=== PATIENT | female | born 1960 | race Caucasian/White ===

== ENCOUNTER 2016-12-19 16:27 | Emergency (ER) | payer OTHER ==
[~2016-12-19] VITALS: Ht 165.1 cm; Wt 71.5 kg
[~2016-12-19 16:27] MED LIST: ALB.5NB20 IH; ALBU8.5H3 INH; BCL80INH INH; DIPH25CA77 PO; GUAI120S26 PO; IBUP800T25 PO; LEVE250T5 PO; PRED50TA PO; ZIPR60CA6 PO
[2016-12-19 16:29] VITALS: Ht 165.1 cm; Wt 71.5 kg
--- NOTE | 2016-12-19 19:39 | RADRPT ---
PROCEDURE: XR Chest. CLINICAL INDICATION: Cough. TECHNIQUE: Portable AP erect view of the chest was obtained. COMPARISON: 12/11/2015 FINDINGS: The cardiomediastinal silhouette is within normal limits. The lungs are clear. There is no evidenc e for pleural effusion, pneumothorax or pulmonary vascular congestion. Degenerative spondylosis of the thoracic spine is again incidentally noted. RPTAT:HJJR IMPRESSION: No evidence for acute intrathoracic pathology or interval change from 12/11/2015. Physician Dipesh Date Time Electronically viewed and signed by Physician Dipesh on 12/19/2016 19:39 /
[2016-12-19] MEDS ORDERED: BENZ100C70 PO (19:57)
[2016-12-19] MEDS ORDERED: PRED20TA PO (19:57)
[2016-12-19] MEDS ORDERED: CEPH-443 PO (19:57)
[2016-12-19] MEDS ORDERED: BEN25 PO (19:57)
[2016-12-19] MEDS ORDERED: ALBU8.5H3 INH (19:57)
--- NOTE | 2016-12-19 20:07 | ERD ---
ER Documentation Chief Complaint Date/Time DATE: 12/19/16 TIME: 20:00 Chief Complaint States she had a bite to upper arm now itches and hurts HPI 56-year-old female patient with a past medical history of asthma, hypertension, seizures, bipolar disorder presents to the ED complaining of insect bites in her bilateral forearms as well as a dry cough that started intermittently for 1 week. Denies any recent traveling. Denies any chest pain, nausea, vomiting, wheezing, abdominal pain, fever, chills. Denies any sick contacts. ROS All systems reviewed and are negative except as per history of present illness. Medications Home Meds Active Scripts Albuterol Sulfate* (Proair HFA*) 8.5 Gm Hfa.aer.ad, 2 PUFF INH Q4, #1 INHALER Prov:ROMAIN FITZPATRICK PA-C 12/19/16 Benzonatate* (Tessalon Perle*) 100 Mg Capsule, 100 MG PO Q8H Y for COUGH, #20 CAP Prov:ROMAIN FITZPATRICK PA-C 12/19/16 Diphenhydramine Hcl* (Benadryl*) 25 Mg Cap, 25 MG PO Q6 Y for ITCHING/RASH, #30 TAB Prov:ROMAIN FITZPATRICK PA-C 12/19/16 Prednisone* (Prednisone*) 20 Mg Tab, 40 MG PO DAILY for 4 Days, TAB Prov:ROMAIN FITZPATRICK PA-C 12/19/16 Cephalexin* (Keflex*) 500 Mg Capsule, 500 MG PO QID for 7 Days, CAP Prov:ROMAIN FITZPATRICK PA-C 12/19/16 Zsfyroizyvz-V-Jrghqufgps Hb* (Guaifenesin* DM Syrup) 120 Ml Syrup, 10 ML PO Q4H Y for COUGH, #120 ML Prov:JESUS BURT NP 12/11/15 Prednisone* (Prednisone*) 50 Mg Tablet, 50 MG PO DAILY, #5 TAB Prov:JESUS BURT NP 12/11/15 Albuterol Sulfate* (Proair HFA*) 8.5 Gm Hfa.aer.ad, 2 PUFF INH Q4H Y for WHEEZING AND SOB, #1 INHALER Prov:JESUS BURT NP 12/11/15 Reported Medications Levetiracetam* (Levetiracetam*) 250 Mg Tablet, 250 MG PO BID 08/05/13 Albuterol Sulfate* (Albuterol Sulfate* Neb) 20 Ml Nebu, 20 ML IH 08/05/13 Beclomethasone Dip (Qvar 80) 1 Puff Inha, 1 PUFF INH BID, INH RINSE MOUTH AFTER EACH USE 08/05/13 Ibuprofen* (Ibuprofen*) 800 Mg Tablet, 800 MG PO Y for PAIN 08/05/13 Diphenhydramine HCl (Benadryl) 25 Mg Capsule, 50 MG PO 08/05/13 Ziprasidone* (Geodon*) 60 Mg Capsule, 60 MG PO BID 08/05/13 Allergies Allergies: Coded Allergies: Tetracyclines (Unverified Allergy, Unknown, DYSPNEA, VOMITING, 12/11/15) aspirin (Unverified Allergy, Unknown, NAUSEA, 12/11/15) codeine (Unverified Allergy, Unknown, RASH, HIVES, 12/11/15) PMhx/Soc History of Surgery: Yes (HYSTERECTOMY, R ARM SX, TONSILLECTOMY, D & C) Anesthesia Reaction: No Hx Neurological Disorder: Yes (SZ, LAST 2YEARS AGO. MIGRAINES) Hx Respiratory Disorders: Yes (ASTHMA) Hx Cardiac Disorders: Yes (HTN) Hx Psychiatric Problems: Yes (BIPOLAR, DEPRESSION, PANIC ATTACKS ) Hx Miscellaneous Medical Probl: Yes (HEP C) Hx Alcohol Use: No Hx Substance Use: No Hx Tobacco Use: No Smoking Status: Never smoker Physical Exam Vitals Vital Signs Date Time Temp Pulse Resp B/P Pulse Ox O2 Delivery O2 Flow Rate FiO2 12/19/16 20:37 98.2 73 20 161/98 99 Room Air 12/19/16 16:29 97.8 104 20 159/98 98 Physical Exam Const: Hoh-kep-ruisllnuz, well-nourished. In no acute distress. Head: Atraumatic, normocephalic Eyes: Normal Conjunctiva without injection. No purulent discharge. PERRL. EOMI ENT: Normal external ear. Ear canal without erythema. Tympanic membrane pearly garcia without effusion or bulging. Nasal canal clear with normal turbinates. Moist oropharynx without tonsillar exudates. Non-erythematous pharynx. Uvula midline. No drooling. No trismus. Neck: Full range of motion. No meningismus. No cervical lymphadenopathy. Resp: Clear to auscultation bilaterally. No wheezing, rhonchi, rales, or crackles. No accessory muscle use. No retractions. Cardio: Regular rate and rhythm. No murmurs, rubs or gallops. Abd: Soft, non tender, non distended. Normal bowel sounds. No palpable masses. No rebound tenderness. No guarding. Skin: No petechiae or rashes Back: No midline tenderness. No CVA tenderness. Ext: No cyanosis, or edema. Neur: Awake and alert. Psych: Normal Mood and Affect Procedures/MDM 56-year-old patient with past medical history of asthma, hypertension, bipolar disorder, seizures to the ED complaining of insect bites on her bilateral arms, dry cough that started 1 week ago. Patient is afebrile and nontoxic-appearing. Patient has a blood pressure of 159/98. Patient's blood pressure was elevated ( >120/80) but appears stable without evidence of hypertension emergency or urgency. The patient was counseled about the risks of hypertension and urged to pursue outpatient monitoring and therapy within a week with their primary care physician. She may have a secondary infection due to her scratching her insect bite vs. allergic reaction. Low suspicion for anaphylaxis, scabies, SJS/TEN, TSS, Lyme' s Disease, syphilis, RMSF, shingles, disseminated gonorrhea chlamydia, DIC, TTP , ITP, erythema multiforme, sepsis, MRSA infection, necrotizing fascitis, gangrene, meningococcemia, allergic contact dermatitis, urticaria, eczema, tinea infection, or other emergent conditions. This patient presents to the ED with symptoms consistent with a viral acute upper respiratory infection. Patient is afebrile and has normal vital signs. Patient's physical exam include lungs which were clear to auscultation and a normal pulse oximetry. There is a low suspicion for pneumonia, pneumothorax, mononucleosis, pulmonary embolism, epiglottitis, otitis media, otitis externa, viral/strep pharyngitis, sinusitis, peritonsillar abscess, mastoiditis, retropharyngeal abscess, meningitis, sepsis, acute abdomen or other emergent conditions. Fluids, rest, and symptomatic treatment are recommended for the management of patient's symptoms. Discharge medications: Ibuprofen, Benadryl, Keflex, Tessalon Perles, Prednisone Follow up with primary care physician in 1-2 days. Instructed patient to return to the ED sooner for any worsening symptoms. Patient's questions were answered. Patient understood and agreed with discharge plan. Patient discharged stable. Departure Diagnosis: Primary Impression: Cough Additional Impression: Insect bite Encounter type: initial encounter Qualified Code: W57.XXXA - Insect bite, initial encounter Condition: Stable Patient Instructions: Allergic Reaction, Insect (General), Insect Sting/Bite, Infected, Uri, Viral, No Abx (Adult) Referrals: COMMUNITY CLINICS YOU HAVE RECEIVED A MEDICAL SCREENING EXAM AND THE RESULTS INDICATE THAT YOU DO NOT HAVE A CONDITION THAT REQUIRES URGENT TREATMENT IN THE EMERGENCY DEPARTMENT. FURTHER EVALUATION AND TREATMENT OF YOUR CONDITION CAN WAIT UNTIL YOU ARE SEEN IN YOUR DOCTORS OFFICE WITHIN THE NEXT 1-2 DAYS. IT IS YOUR RESPONSIBILITY TO MAKE AN APPOINTMENT FOR FOLOW-UP CARE. IF YOU HAVE A PRIMARY DOCTOR --you should call your primary doctor and schedule an appointment IF YOU DO NOT HAVE A PRIMARY DOCTOR YOU CAN CALL OUR PHYSICIAN REFERRAL HOTLINE AT IF YOU CAN NOT AFFORD TO SEE A PHYSICIAN YOU CAN CHOSE FROM THE FOLLOWING [facility] [address] [facility]. [facility] [address] [facility]. [facility] [address] [facility] [address] [facility]. [facility] [address] [facility]. [facility]. [address] [facility]. [facility] YOU HAVE RECEIVED A MEDICAL SCREENING EXAM AND THE RESULTS INDICATE THAT YOU DO NOT HAVE A CONDITION THAT REQUIRES URGENT TREATMENT IN THE EMERGENCY DEPARTMENT. FURTHER EVALUATION AND TREATMENT OF YOUR CONDITION CAN WAIT UNTIL YOU ARE SEEN IN YOUR DOCTORS OFFICE WITHIN THE NEXT 1-2 DAYS. IT IS YOUR RESPONSIBILITY TO MAKE AN APPOINTMENT FOR FOLOW-UP CARE. IF YOU HAVE A PRIMARY DOCTOR --you should call your primary doctor and schedule and appointment IF YOU DO NOT HAVE A PRIMARY DOCTOR YOU CAN CALL OUR PHYSICIAN REFERRAL HOTLINE AT . IF YOU CAN NOT AFFORD TO SEE A PHYSICIAN YOU CAN CHOSE FROM THE FOLLOWING [facility] INSTITUTIONS: [facility] [address] [place] [address] [facility] [address] [place] [address] [facility] [address] [place] [address] [facility] Additional Instructions: Call your primary care doctor TOMORROW for an appointment during the next 2-3 days.See the doctor sooner or return here if your condition worsens before your appointment time. ROMAIN FITZPATRICK PA-C Dec 19, 2016 20:07
[2016-12-19 20:37] VITALS: BP 161/98; PULSE 73; RESP 20; TEMP 98.2
== END 2016-12-19 20:38 | disposition home or self-care (01) ==
LOC: FTE 16:27
DX: S50.862A Insect bite (nonvenomous) of left forearm, initial encounter (principal); S50.861A Insect bite (nonvenomous) of right forearm, initial encounter; I10 Essential (primary) hypertension; J45.909 Unspecified asthma, uncomplicated; R05 Cough; W57.XXXA Bitten or stung by nonvenomous insect and other nonvenomous arthropods, initial encounter
CPT/HCPCS: 71010; Z7502

== ENCOUNTER 2018-01-30 20:35 | Emergency (ER) | END 2018-01-30 22:18 | disposition home or self-care (01) ==

== ENCOUNTER 2018-05-15 14:41 | Inpatient (IN) | payer OTHER ==
[~2018-05-15] VITALS: Ht 157.5 cm; Wt 81.7 kg
[~2018-05-15 14:41] MED LIST changes: +ALBU18HF INHALATION; -ALBU8.5H3 INH; +ALBU8.5H8 INH; +AZIT250T PO; +BEN25 PO; +BENZ-6 PO; +BENZ200C68 PO; +CEPH-443 PO; +D-ME473S2 PO; +IBUP-1544 PO; -IBUP800T25 PO; +MED4DP PO; +PRED20TA PO; +ZIPR60CA2 PO; -ZIPR60CA6 PO
[2018-05-15 14:49] VITALS: Ht 157.5 cm; Wt 81.7 kg
[2018-05-15] MEDS ORDERED: DEXAMETHASONE 10 MG/ML 1 ML INJ IV STA (16:28)
[2018-05-15] MEDS ORDERED: ALBUTEROL 0.5% (NEB) 2.5 MG/0.5 ML AMP INH STA (16:28)
[2018-05-15] MEDS ORDERED: CEFTRIAXONE 1 GM/50 ML (PMX) 50 ML IVPB STA (16:28)
[2018-05-15] MEDS ORDERED: IPRATROPIUM (NEB) 0.5 MG/2.5 ML AMP INH STA (16:28)
[2018-05-15] MEDS ORDERED: SODIUM CHLORIDE 0.9% 1L BAG IV* STA (16:28)
[2018-05-15] MEDS ORDERED: AZITHROMYCIN 500MG/NS (PMX) 250 ML IV STA (16:28)
[2018-05-15] MEDS ORDERED: TOPI100T11 PO (16:34)
[2018-05-15] MEDS ORDERED: LEVE500T8 PO (16:35)
--- NOTE | 2018-05-15 16:46 | ERD ---
ER Documentation Chief Complaint Chief Complaint fever, bodyaches, cough/congestion, cwp x 3 weeks HPI 58-year-old female history of asthma, exposure to secondhand smoke and hypertension presents to the emergency room complaining of cough and congestion for approximately 3 weeks. The cough is now more productive with yellowish spu kassie. Low-grade fevers. Myalgias and body aches have been noted. She notes chest wall pain with cough and heaviness with coughing as well. No exertional symptoms or pleuritic pain. The patient was seen here 2 times during this timeframe and treated for viral bronchitis. She states that she may have been on antibiotics though this is not documented in the EMR from prior visits. ROS All systems reviewed and are negative except as per history of present illness. Medications Home Meds Active Scripts Albuterol Sulfate* (Ventolin HFA*) 18 Gm Hfa.aer.ad, 2 PUFF INHALATION Q4H, #1 INHALER Prov:RAMONA DAWN MD 04/30/18 Dextromethorphan Hb-Promethazine Hcl* (Promethazine DM* Syrup) 473 Ml Syrup, 5 ML PO Q6 PRN for COUGH for 5 Days, ML Prov:RAMONA DAWN MD 04/30/18 Reported Medications Levetiracetam* (Levetiracetam*) 500 Mg Tablet, 1000 MG PO BID, TAB 05/15/18 Topiramate* (Topiramate*) 100 Mg Tablet, 100 MG PO TID, TAB 05/15/18 Discontinued Reported Medications Levetiracetam* (Levetiracetam*) 250 Mg Tablet, 250 MG PO BID 08/05/13 Albuterol Sulfate* (Albuterol Sulfate* Neb) 20 Ml Nebu, 20 ML IH 08/05/13 Beclomethasone Dip (Qvar 80) 1 Puff Inha, 1 PUFF INH BID, INH RINSE MOUTH AFTER EACH USE 08/05/13 Ibuprofen* (Ibuprofen*) 800 Mg Tablet, 800 MG PO PRN for PAIN 08/05/13 Diphenhydramine HCl (Benadryl) 25 Mg Capsule, 50 MG PO 08/05/13 Ziprasidone* (Geodon*) 60 Mg Capsule, 60 MG PO BID 08/05/13 Discontinued Scripts Prednisone* (Prednisone*) 20 Mg Tab, 40 MG PO DAILY for 4 Days, TAB Start April 30, 2018 Prov:RAMONA DAWN MD 04/30/18 Azithromycin* (Zithromax*) 250 Mg Tablet, 250 MG PO .ZPAFROYLAN DIRECTED, #6 TAB TAKE 500 MG (2 TABS) THE FIRST DAY THEN 250 MG (1 TAB) DAYS 2-5 Prov:RAMONA DAWN MD 04/30/18 Albuterol Sulfate* (Ventolin HFA*) 18 Gm Hfa.aer.ad, 2 PUFF INHALATION Q4H, #1 INHALER Prov:ADALBERTO ARTEAGA PA-C 01/30/18 Azithromycin* (Zithromax*) 250 Mg Tablet, 250 MG PO .MARTINA DIRECTED, #6 TAB TAKE 500 MG (2 TABS) THE FIRST DAY THEN 250 MG (1 TAB) DAYS 2-5 Prov:ADALBERTO ARTEAGA PA-C 01/30/18 Benzonatate* (Benzonatate*) 200 Mg Capsule, 200 MG PO TID PRN for COUGH, #15 CAP Prov:ADALBERTO ARTEAGA PA-C 01/30/18 Methylprednisolone* (Medrol* DOSE PACK) 4 Mg/Dose-Pack Tab.ds.pk, 4 MG PO . DIRECTED, #1 PACKET Prov:ADALBERTO ARTEAGA PA-C 01/30/18 Albuterol Sulfate* (Proair HFA*) 8.5 Gm Hfa.aer.ad, 2 PUFF INH Q4, #1 INHALER Prov:ROMAIN FITZPATRICK PA-C 12/19/16 Benzonatate* (Tessalon Perle*) 100 Mg Capsule, 100 MG PO Q8H PRN for COUGH, #20 CAP Prov:ROMAIN FITZPATRICK PA-C 12/19/16 Diphenhydramine Hcl* (Benadryl*) 25 Mg Cap, 25 MG PO Q6 PRN for ITCHING/RASH, #30 TAB Prov:ROMAIN FITZPATRICK PA-C 12/19/16 Prednisone* (Prednisone*) 20 Mg Tab, 40 MG PO DAILY for 4 Days, TAB Prov:ROMAIN FITZPATRICK PA-C 12/19/16 Cephalexin* (Keflex*) 500 Mg Capsule, 500 MG PO QID for 7 Days, CAP Prov:ROMAIN FITZPATRICK PA-C 12/19/16 Qaiaaydofcy-I-Erhqlrzttf Hb* (Guaifenesin* DM Syrup) 120 Ml Syrup, 10 ML PO Q4H PRN for COUGH, #120 ML Prov:JESUS BURT NP 12/11/15 Prednisone* (Prednisone*) 50 Mg Tablet, 50 MG PO DAILY, #5 TAB Prov:JESUS BURT NP 12/11/15 Albuterol Sulfate* (Proair HFA*) 8.5 Gm Hfa.aer.ad, 2 PUFF INH Q4H PRN for WHEEZING AND SOB, #1 INHALER Prov:JESUS BURT NP 12/11/15 Allergies Allergies: Coded Allergies: Tetracyclines (Unverified Allergy, Unknown, DYSPNEA, VOMITING, 05/15/18) aspirin (Unverified Allergy, Unknown, NAUSEA, 05/15/18) codeine (Unverified Allergy, Unknown, RASH, HIVES, 05/15/18) PMhx/Soc History of Surgery: Yes (hysterectomy, tonsillectomy, ) Anesthesia Reaction: No Hx Neurological Disorder: Yes (seizure) Hx Respiratory Disorders: Yes (ASTHMA) Hx Cardiac Disorders: Yes (htn) Hx Psychiatric Problems: Yes (bipolar) Hx Miscellaneous Medical Probl: Yes (HEP C) Hx Alcohol Use: No Hx Substance Use: No Hx Tobacco Use: No FmHx Family History: No diabetes Physical Exam Vitals Vital Signs Date Temp Pulse Resp B/P (MAP) Pulse Ox O2 O2 Flow FiO2 Time Delivery Rate 05/15/18 Simple 16:59 Mask 05/15/18 111 20 92 21 16:46 05/15/18 100.0 122 22 121/72 90 14:49 (88) Physical Exam General: Well developed, well nourished, no acute distress Head: Normocephalic, atraumatic. Eyes: Pupils equally reactive, EOM intact ENT: Moist mucous membranes Neck: Supple, no lymphadenopathy Respiratory: Wheezing and rhonchi bilaterally, no respiratory distress Cardiovascular: Tachycardia, no murmurs, rubs, or gallops Abdominal: Soft, non-tender, non-distended, no peritoneal signs : Deferred MSK: No edema, no unilateral swelling, 5/5 strength Neurologic: Alert and oriented, moving all extremities, normal speech, no focal weakness, no cerebellar signs Skin: No rash Psych: Normal mood Result Diagram: 05/15/18 1640 05/15/18 1640 Results 24 hrs Laboratory Tests Test 05/15/18 16:38 05/15/18 16:40 POC Venous Lactate 1.8 mmol/L White Blood Count 19.2 10^3/ul Red Blood Count 4.23 10^6/ul Hemoglobin 13.2 g/dl Hematocrit 38.2 % Mean Corpuscular Volume 90.3 fl Mean Corpuscular Hemoglobin 31.2 pg Mean Corpuscular Hemoglobin Concent 34.6 g/dl Red Cell Distribution Width 11.7 % Platelet Count 203 10^3/UL Mean Platelet Volume 9.8 fl Immature Granulocytes % 1.200 % Neutrophils % 84.7 % Lymphocytes % 8.2 % Monocytes % 5.7 % Eosinophils % 0.0 % Basophils % 0.2 % Nucleated Red Blood Cells % 0.0 /100WBC Immature Granulocytes # 0.240 10^3/ul Neutrophils # 16.3 10^3/ul Lymphocytes # 1.6 10^3/ul Monocytes # 1.1 10^3/ul Eosinophils # 0.0 10^3/ul Basophils # 0.0 10^3/ul Nucleated Red Blood Cells # 0.0 10^3/ul Sodium Level 136 mmol/L Potassium Level 3.2 mmol/L Chloride Level 98 mmol/L Carbon Dioxide Level 26 mmol/L Anion Gap 12 Blood Urea Nitrogen 11 mg/dl Creatinine 0.78 mg/dl Est Glomerular Filtrat Rate mL/min > 60 mL/min Glucose Level 168 mg/dl Calcium Level 9.1 mg/dl Troponin I < 0.012 ng/ml Current Medications Medications Dose Sig/Enoc Start Time Status Last (Trade) Ordered Route PRN Stop Time Admin Dose Reason Admin Sodium 2,450 ml BOLUS OVER 2 05/15/18 DC 05/15/18 Chloride HOURS STAT 16:28 16:56 (NS) IV* 05/15/18 16:31 Ceftriaxone 50 ml @ ONCE STAT 05/15/18 DC 05/15/18 Sodium 100 mls/hr IVPB 16:28 16:52 05/15/18 16:57 Azithromycin 250 ml @ ONCE STAT 05/15/18 DC 250 mls/hr IV 16:28 05/15/18 17:27 Albuterol 5 mg ONCE STAT 05/15/18 DC 05/15/18 (Proventil INH 16:28 16:45 0.5% (Neb)) 05/15/18 16:31 Ipratropium 1 mg ONCE STAT 05/15/18 DC 05/15/18 [place] INH 16:28 16:45 (Atrovent 05/15/18 16:31 0.02% (Neb)) 10 mg ONCE STAT 05/15/18 DC 05/15/18 Dexamethasone IV 16:28 16:50 (Decadron) 05/15/18 16:31 Ondansetron 4 mg BRIDGE ORDER 05/15/18 HCl (Zofran PRN IV 18:00 Inj) NAUSEA/VOMITI 05/16/18 17:59 NG 650 mg ER BRIDGE 05/15/18 Acetaminophen PRN PO 18:00 (Tylenol .MILD PAIN 05/16/18 17:59 Tab) 1-3 OR TEMP Procedures/MDM EKG, MONITORS, & DIAGNOSTIC IMAGING: EKG: I reviewed and interpreted a 12-lead EKG. Rhythm: Sinus tachycardia ST Changes: No contiguous ST segment elevations T waves: No contiguous T wave inversions Impression: No evidence of acute cardiac ischemia Chest x-ray: I reviewed and interpreted a 1 view of the chest Mediastinum: No enlargement Cardiac silhouette: No cardiomegaly Airspace: Interstitial infiltrates right greater than left concerning for pneumonia Bones: No evidence of fracture LAB INTERPRETATION: I reviewed the laboratory testing and it shows significant leukocytosis, normal lactic acid MEDICAL DECISION MAKING: The patient presents with cough congestion wheezing. The patient's presentation is possibly consistent with asthma exacerbation secondary to viral URI versus progression to pneumonia. The patient will benefit from sepsis screening, breathing treatments, steroids, symptom control. Lower threshold for hospitalization. The patient believes she was on an oral antibiotic recently. Possibly azithromycin but she is not sure. Patient will benefit from IV fluids, breathing treatment, steroids, blood cultures prior to antibiotics, Rocephin, azithromycin will be provided. I still believe azithromycin will be appropriate supplement to ceftriaxone given the p atient's symptoms are more likely secondary to reactive airway disease and inflammation rather than pneumonia. Culture monitoring would be appropriate. ER COURSE: * Treatments provided as documented above * Lactic acid reassuring * Symptoms are improving with the patient does have oxygen requirement, elevated white blood cell count that warrants inpatient hospitalization. The patient is unlikely to do well on an outpatient basis given the progressive symptoms over the last several weeks. CONSULTATION: None DISPOSITION PLAN: Medical surgical admission for management of community acquired pneumonia with failure of outpatient treatment for acute bronchitis Accepting care team and consultations: I discussed the current laboratory data, diagnostic imaging and emergency care provided. Admitting team: Panel team, Dr. Leon and Dr. Mirza notified Admitting team indication: Insurance directed Sepsis Documentation: Patient's infectious symptoms have not stabilized and the patient is at risk of rapid decompensation. The patient will be admitted for careful hydration, antibiotic therapy, and infectious source control. SEVERE SEPSIS CRITERIA: Infectious source: Community-acquired pneumonia End organ damage indicated by: Acute Resp Failure (sat < 92% w/o oxygen) SEPSIS MANAGEMENT Time of recognition of sepsis: Upon MD assessment. Time of recognition of severe sepsis: Upon MD assessment. Time of recognition of septic shock: No septic shock at this time. 3 HOUR BUNDLE Blood cultures x 2 before broad-spectrum antibiotics: Yes 30 ml/kg NS bolus completed Initial lactate less than 2.0 Repeat lactate pending repeat SEPTIC SHOCK ASSESSMENT: No lactic acid > 4.0 No persistent hypotension (SBP < 90 or 40 mmHg drop, MAP < 65) despite 30 mL/kg IV fluid bolus VOLUME REASSESSMENT FOR SEPTIC SHOCK: The patient does not meet criteria for septic shock in the emergency department at this time PERSISTENT HYPOTENSION TREATMENT: Comfort care no Central line not Required Vasopressor started not required I considered further perfusion assessment with CVP measurement, SCVO2, bedside ultrasound volume assessment, passive leg raise, trial of further fluid bolus. And proceeded with 30 ml/kg fluid bolus of NSS, broad spectrum antibiotics, and admission. CRITICAL CARE Critical care time 35 minutes Emergent fluid management while maintaining close respiratory support. P rovision of immediate and broad-spectrum antibiotic therapy. Simultaneous assessment for possible sources in order to direct targeted therapy. Consideration for invasive and chemical support to prevent cardiopulmonary collapse. Critical care time is independent of procedures performed. Departure Diagnosis: Primary Impression: Severe sepsis Additional Impressions: Community acquired pneumonia Laterality: unspecified laterality Qualified Codes: J18.9 - Pneumonia, unspecified organism Hypoxia Condition: Stable SANJUANA DURHAM MD May 15, 2018 16:46
[2018-05-15] MEDS ORDERED: ONDANSETRON 4 MG INJ IV PRN ×2 (18:00→20:00)
[2018-05-15] MEDS ORDERED: ACETAMINOPHEN 325 MG TAB PO PRN ×2 (18:00→20:00)
[2018-05-15] MEDS ORDERED: SOD CHLORIDE 0.9% 1,000 ML IV SCH (19:41)
[2018-05-15 19:54] VITALS: BP 125/71; PULSE 103; RESP 18
[2018-05-15] MEDS ORDERED: IPRATROPIUM (NEB) 0.5 MG/2.5 ML AMP HHN PRN (20:00)
[2018-05-15] MEDS ORDERED: LEVALBUTEROL (NEB) 1.25 MG/0.5 ML AMP HHN PRN (20:00)
[2018-05-15] MEDS ORDERED: HYDROCODONE/APAP (5/325) TAB PO PRN (20:00)
[2018-05-15] MEDS ORDERED: NACL 0.9% 3 ML SYG IV SCH (20:00)
[2018-05-15] MEDS ORDERED: POTASSIUM CHLORIDE 20 MEQ POWDER FOR ORAL SOLN PO ONE (20:00)
[2018-05-15] MEDS: GUAIFENESIN/DM 5ML CUP PO PRN (20:25)
--- NOTE | 2018-05-15 20:35 | HP ---
Date/Time of Note Date/Time of Note DATE: 05/15/18 TIME: 20:35 Assessment/Plan VTE Prophylaxis Pharmacological prophylaxis: other Lines/Catheters IV Catheter Type (from Nrsg): Saline Lock Assessment/Plan Hospital Course Objective Physical exam General: Patient is laying in bed and answers questions appropriately Mentation: Patient is alert and oriented 4, Head: Normocephalic atraumatic Eyes: EOMI, pupils reactive to light Neck: Supple, nontender, midline Respiratory: Wheezing to auscultation bilaterally Cardiovascular: regular rate, no obvious murmurs Gastrointestinal: non-tender to palpation, bowel sounds heard. Neurological: Moves all extremities spontaneously Skin: No new skin lesions Assessment and plan Bilateral pneumonia -IV antibiotic -DuoNeb -Budesonide nebulizer Sepsis -Secondary to above pneumonia-IV antibiotic -Cultures -IV fluids Asthma -Patient not having true asthma exacerbation, however will continue nebulizers as above for pneumonia Epilepsy -Continue home meds Intractable headaches -Continue home meds Bipolar -Monitor Disposition -Anticipate 1-2-day stay, patient is septic and will need to have a lessening of fever and white count before discharge Result Diagram: 05/15/18 1640 05/15/18 1640 Results 24hrs Laboratory Tests Test 05/15/18 16:38 05/15/18 16:40 POC Venous Lactate 1.8 White Blood Count 19.2 H Red Blood Count 4.23 Hemoglobin 13.2 Hematocrit 38.2 Mean Corpuscular Volume 90.3 Mean Corpuscular Hemoglobin 31.2 Mean Corpuscular Hemoglobin Concent 34.6 Red Cell Distribution Width 11.7 Platelet Count 203 Mean Platelet Volume 9.8 Immature Granulocytes % 1.200 H Neutrophils % 84.7 H Lymphocytes % 8.2 L Monocytes % 5.7 Eosinophils % 0.0 Basophils % 0.2 Nucleated Red Blood Cells % 0.0 Immature Granulocytes # 0.240 H Neutrophils # 16.3 H Lymphocytes # 1.6 Monocytes # 1.1 H Eosinophils # 0.0 Basophils # 0.0 Nucleated Red Blood Cells # 0.0 Sodium Level 136 Potassium Level 3.2 L Chloride Level 98 Carbon Dioxide Level 26 Anion Gap 12 Blood Urea Nitrogen 11 Creatinine 0.78 Est Glomerular Filtrat Rate mL/min > 60 Glucose Level 168 Calcium Level 9.1 Troponin I < 0.012 HPI/ROS Admit Date/Time Admit Date/Time May 15, 2018 at 17:36 Hx of Present Illness Patient is a male with past medical history significant for asthma, epilepsy, intractable migraines, and bipolar disease who presents to [facility] for worsening shortness of breath and cough. Over the past 3 weeks patient has been dealing with multiple different types of illnesses and this worsening cough. Patient went into the ER multiple times as well as her primary care provider was given medications however all the symptoms continue to get worse. Patient was admitted today for pneumonia. Patient currently complains of productive cough and generalized weakness and body aches. Patient denies abdominal pain, leg pain, chest pain. PMH/Family/Social Past Medical History Medications Current Medications Azithromycin 250 ml @ 250 mls/hr Q24H IVPB ; Start 05/16/18 at 18:00 Ceftriaxone Sodium 50 ml @ 100 mls/hr Q24H IVPB ; Start 05/16/18 at 17:00 Levalbuterol (Xopenex Neb) 1.25 mg Q4H RESP THERAPY PRN HHN wheezing/sob; Start 05/15/18 at 20:00 Levalbuterol (Xopenex Neb) 1.25 mg Q6HWA RESP THERAPY HHN ; Start 05/15/18 at 20:00 Ipratropium [place] (Atrovent 0.02% (Neb)) 0.5 mg Q6HWA RESP THERAPY HHN ; Start 05/15/18 at 20:00 Ipratropium [place] (Atrovent 0.02% (Neb)) 0.5 mg Q4H RESP THERAPY PRN HHN SHORTNESS OF BREATH; Start 05/15/18 at 20:00 Budesonide (Pulmicort (Neb)) 0.5 mg BID RESP THERAPY HHN ; Start 05/15/18 at 20:00 Sodium Chloride 1,000 ml @ 50 mls/hr Q20H IV Last administered on 05/15/18at 20:08; Admin Dose 50 MLS/HR; Start 05/15/18 at 19:41; Stop 05/16/18 at 15:40 IV Flush (NS 3 ml) 3 ml PER PROTOCOL IV ; Start 05/15/18 at 20:00 Ondansetron HCl (Zofran Inj) 4 mg Q6H PRN IV NAUSEA/VOMITING; Start 05/15/18 at 20:00 Acetaminophen (Tylenol Tab) 650 mg Q6H PRN PO .PAIN 1-3 OR TEMP; Start 05/15/18 at 20:00 Acetaminophen/ Hydrocodone Bitart ([place] (5/325)) 1 tab Q6H PRN PO .PAIN 4-6; Start 05/15/18 at 20:00 Enoxaparin Sodium (Lovenox) 40 mg DAILY SC ; Start 05/16/18 at 09:00 Guaifenesin/ Dextromethorphan (Robitussin Dm Liquid Cup) 5 ml Q4H PRN PO cough Last administered on 05/15/18at 20:25; Admin Dose 5 ML; Start 05/15/18 at 20:00 Levetiracetam (Keppra) 1,000 mg BID PO ; Start 05/15/18 at 21:00; Status UNV Topiramate (Topamax) 100 mg TID PO ; Start 05/15/18 at 21:00; Status UNV Coded Allergies: Tetracyclines (Unverified Allergy, Unknown, DYSPNEA, VOMITING, 05/15/18) aspirin (Unverified Allergy, Unknown, NAUSEA, 05/15/18) codeine (Unverified Allergy, Unknown, RASH, HIVES, 05/15/18) Social History Smoking Status: Never smoker Exam/Review of Systems Vital Signs Vitals Vital Signs Date Temp Pulse Resp B/P (MAP) Pulse Ox O2 O2 Flow FiO2 Time Delivery Rate 05/15/18 98.9 103 18 125/71 93 19:54 (89) 05/15/18 Room Air 19:18 05/15/18 21 16:46 BERT VAZQUEZ May 15, 2018 20:35
[2018-05-15] MEDS: IPRATROPIUM (NEB) 0.5 MG/2.5 ML AMP HHN SCH (20:46)
[2018-05-15] MEDS: LEVALBUTEROL (NEB) 1.25 MG/0.5 ML AMP HHN SCH (20:46)
[2018-05-15] MEDS: BUDESONIDE (NEB) 0.5MG/2ML AMP HHN SCH (20:47)
[2018-05-16] MEDS: TOPIRAMATE 100 MG TAB PO SCH ×4 (00:48→22:25)
[2018-05-16] MEDS: LEVETIRACETAM 500 MG TAB PO SCH ×3 (00:48→22:25)
[2018-05-16 01:30] VITALS: BP 138/76; PULSE 86; RESP 18
[2018-05-16 07:41] VITALS: BP 101/63; PULSE 73; RESP 16
[2018-05-16] MEDS: GUAIFENESIN/DM 5ML CUP PO PRN ×3 (08:27→23:24)
[2018-05-16] MEDS: LEVALBUTEROL (NEB) 1.25 MG/0.5 ML AMP HHN SCH ×3 (08:31→19:58)
[2018-05-16] MEDS: IPRATROPIUM (NEB) 0.5 MG/2.5 ML AMP HHN SCH ×3 (08:31→19:58)
[2018-05-16] MEDS: ENOXAPARIN 40 MG/0.4 ML SYG SC SCH (08:32)
[2018-05-16] MEDS: BUDESONIDE (NEB) 0.5MG/2ML AMP HHN SCH ×2 (08:39→19:59)
--- NOTE | 2018-05-16 10:03 | PN ---
Date/Time of Note Date/Time of Note DATE: 05/16/18 TIME: 10:00 Assessment/Plan VTE Prophylaxis Risk score (from [facility])>0 risk: 2 SCD applied (from [facility]): Yes Pharmacological prophylaxis: heparin Lines/Catheters IV Catheter Type (from [facility]): Saline Lock Assessment/Plan Problems: (1) Severe sepsis Status: Acute Comment: Improving with aggressive antibiotic treatment. Patient is stabilizing nicely (2) Community acquired pneumonia Status: Acute Comment: On IV antibiotic therapy combining cephalosporin with macrolide antibiotic. Please note that she is allergic to the tetracycline family. Clin ically improving Qualifiers: Laterality: unspecified laterality Qualified Codes: J18.9 - Pneumonia, unspecified organism (3) Asthma, severe persistent Status: Chronic Comment: Due to the infection. Bring her medications up to full force. Please note that she did not done well with leukotriene receptor medications in the past Qualifiers: Asthma complication type: with status asthmaticus Qualified Codes: J45.52 - Severe persistent asthma with status asthmaticus (4) Seizure disorder Status: Chronic Comment: Maintain her antiepileptic medication. Please note that her neurologist is Dr. Carrasco. (5) Migraine syndrome Status: Chronic Comment: Noted. (6) Hepatitis C Status: Chronic Comment: Patient reportedly has been treated with moderate medication and is clinically cured. Qualifiers: Viral hepatitis chronicity: unspecified Result Diagram: 05/16/18 0545 05/16/18 0545 Results 24hrs Laboratory Tests Test 05/15/18 16:38 05/15/18 16:40 05/15/18 20:47 05/16/18 05:45 POC Venous Lactate 1.8 White Blood Count 19.2 H 11.0 #H Red Blood Count 4.23 3.65 L Hemoglobin 13.2 11.3 L Hematocrit 38.2 33.5 L Mean Corpuscular 90.3 91.8 Volume Mean Corpuscular 31.2 31.0 Hemoglobin Mean Corpuscular 34.6 33.7 Hemoglobin Concent Red Cell 11.7 11.6 Distribution Width Platelet Count 203 186 Mean Platelet Volume 9.8 10.1 Immature 1.200 H 0.800 H Granulocytes % Neutrophils % 84.7 H 89.2 H Lymphocytes % 8.2 L 7.3 L Monocytes % 5.7 2.6 Eosinophils % 0.0 0.0 Basophils % 0.2 0.1 Nucleated Red Blood 0.0 0.0 Cells % Immature 0.240 H 0.090 H Granulocytes # Neutrophils # 16.3 H 9.8 H Lymphocytes # 1.6 0.8 Monocytes # 1.1 H 0.3 Eosinophils # 0.0 0.0 Basophils # 0.0 0.0 Nucleated Red Blood 0.0 0.0 Cells # Sodium Level 136 143 Potassium Level 3.2 L 3.8 Chloride Level 98 105 Carbon Dioxide Level 26 24 Anion Gap 12 14 H Blood Urea Nitrogen 11 11 Creatinine 0.78 0.61 Est Glomerular > 60 > 60 Filtrat Rate mL/min Glucose Level 168 170 Calcium Level 9.1 8.6 Troponin I < 0.012 Lactic Acid Level 1.6 Magnesium Level 2.4 Total Bilirubin 0.4 Direct Bilirubin 0.00 Indirect Bilirubin 0.4 Aspartate Amino 19 Transf (AST/SGOT) Alanine 18 Aminotransferase (AL T/SGPT) Alkaline Phosphatase 86 Total Protein 6.8 Albumin 3.3 Globulin 3.50 H Albumin/Globulin 0.94 Ratio CC: TONG CARRASCO MD ; Subjective 24 Hr Interval Summary Free Text/Dictation Patient reports she is feeling better than yesterday but is not feeling back to her baseline. She reports a 24-year history of asthma and a remote history of hepatitis C that she was reportedly cured of Constitutional: no complaints Eyes: no complaints Respiratory: cough, shortness of breath, wheezing Cardiovascular: no complaints Gastrointestinal: no complaints Genitourinary: no complaints Exam/Review of Systems Exam Vitals Vital Signs Date Temp Pulse Resp B/P (MAP) Pulse Ox O2 O2 Flow FiO2 Time Delivery Rate 05/16/18 78 20 94 21 08:43 05/16/18 97.7 101/63 07:41 (76) 05/15/18 Room Air 19:18 Intake and Output 05/15/18 05/15/18 05/16/18 1414:59 22:59 06:59 IntakeIntake Total 290 ml 570 ml BalanceBalance 290 ml 570 ml Constitutional: alert, oriented Respiratory: diminished breath sounds, wheezing Cardiovascular: regular rate and rhythm, nl pulses Gastrointestinal: soft, nl liver, spleen, non-tender Results Results 24hrs Laboratory Tests Test 05/15/18 16:38 05/15/18 16:40 05/15/18 20:47 2/16/19 05:45 POC Venous Lactate 1.8 White Blood Count 19.2 H 11.0 #H Red Blood Count 4.23 3.65 L Hemoglobin 13.2 11.3 L Hematocrit 38.2 33.5 L Mean Corpuscular 90.3 91.8 Volume Mean Corpuscular 31.2 31.0 Hemoglobin Mean Corpuscular 34.6 33.7 Hemoglobin Concent Red Cell 11.7 11.6 Distribution Width Platelet Count 203 186 Mean Platelet Volume 9.8 10.1 Immature 1.200 H 0.800 H Granulocytes % Neutrophils % 84.7 H 89.2 H Lymphocytes % 8.2 L 7.3 L Monocytes % 5.7 2.6 Eosinophils % 0.0 0.0 Basophils % 0.2 0.1 Nucleated Red Blood 0.0 0.0 Cells % Immature 0.240 H 0.090 H Granulocytes # Neutrophils # 16.3 H 9.8 H Lymphocytes # 1.6 0.8 Monocytes # 1.1 H 0.3 Eosinophils # 0.0 0.0 Basophils # 0.0 0.0 Nucleated Red Blood 0.0 0.0 Cells # Sodium Level 136 143 Potassium Level 3.2 L 3.8 Chloride Level 98 105 Carbon Dioxide Level 26 24 Anion Gap 12 14 H Blood Urea Nitrogen 11 11 Creatinine 0.78 0.61 Est Glomerular > 60 > 60 Filtrat Rate mL/min Glucose Level 168 170 Calcium Level 9.1 8.6 Troponin I < 0.012 Lactic Acid Level 1.6 Magnesium Level 2.4 Total Bilirubin 0.4 Direct Bilirubin 0.00 Indirect Bilirubin 0.4 Aspartate Amino 19 Transf (AST/SGOT) Alanine 18 Aminotransferase (AL T/SGPT) Alkaline Phosphatase 86 Total Protein 6.8 Albumin 3.3 Globulin 3.50 H Albumin/Globulin 0.94 Ratio Medications Medication Current Medications Azithromycin 250 ml @ 250 mls/hr Q24H IVPB ; Start 05/16/18 at 18:00; Stop 05/19/18 at 17:59 Ceftriaxone Sodium 50 ml @ 100 mls/hr Q24H IVPB ; Start 05/16/18 at 17:00; Stop 05/23/18 at 16:59 Levalbuterol (Xopenex Neb) 1.25 mg Q4H RESP THERAPY PRN HHN wheezing/sob; Start 05/15/18 at 20:00 Levalbuterol (Xopenex Neb) 1.25 mg Q6HWA RESP THERAPY HHN Last administered on 05/16/18 08:31; Admin Dose 1.25 MG; Start 05/15/18 at 20:00 Ipratropium [place] (Atrovent 0.02% (Neb)) 0.5 mg Q6HWA RESP THERAPY HHN Last administered on 05/16/18 08:31; Admin Dose 0.5 MG; Start 05/15/18 at 20:00 Ipratropium [place] (Atrovent 0.02% (Neb)) 0.5 mg Q4H RESP THERAPY PRN HHN SHORTNESS OF BREATH; Start 05/15/18 at 20:00 Budesonide (Pulmicort (Neb)) 0.5 mg BID RESP THERAPY HHN Last administered on 05/16/18 08:39; Admin Dose 0.5 MG; Start 05/15/18 at 20:00 Sodium Chloride 1,000 ml @ 50 mls/hr Q20H IV Last administered on 05/15/18 20:08; Admin Dose 50 MLS/HR; Start 05/15/18 at 19:41; Stop 05/16/18 at 15:40 IV Flush (NS 3 ml) 3 ml PER PROTOCOL IV ; Start 05/15/18 at 20:00 Ondansetron HCl (Zofran Inj) 4 mg Q6H PRN IV NAUSEA/VOMITING; Start 05/15/18 at 20:00 Acetaminophen (Tylenol Tab) 650 mg Q6H PRN PO .PAIN 1-3 OR TEMP; Start 05/15/18 at 20:00 Acetaminophen/ Hydrocodone Bitart ([place] (5/325)) 1 tab Q6H PRN PO .PAIN 4-6; Start 05/15/18 at 20:00 Enoxaparin Sodium (Lovenox) 40 mg DAILY SC Last administered on 05/16/18 08:32; Admin Dose 40 MG; Start 05/16/18 at 09:00 Guaifenesin/ Dextromethorphan (Robitussin Dm Liquid Cup) 5 ml Q4H PRN PO cough Last administered on 05/16/18 08:27; Admin Dose 5 ML; Start 05/15/18 at 20:00 Levetiracetam (Keppra) 1,000 mg BID PO Last administered on 05/16/18at 08:27; Admin Dose 1,000 MG; Start 05/15/18 at 21:00 Topiramate (Topamax) 100 mg TID PO Last administered on 05/16/18at 08:27; Admin Dose 100 MG; Start 05/15/18 at 22:00 Fluticasone/ Vilanterol (Breo Ellipta 200-25 Mcg Inh) 1 inh DAILY INH ; Start 05/16/18 at 10:00; Status UNV Tiotropium [place] (Spiriva) 1 inh DAILY INH ; Start 05/16/18 at 10:00; Status UNV RENEE JIMENEZ MD May 16, 2018 10:03
[2018-05-16] MEDS: TIOTROPIUM 18 MCG CAPSULE INHA DEV INH SCH (10:30)
[2018-05-16] MEDS: FLUTICASONE/VILANTEROL 200-25 INH DEVICE INH SCH (10:30)
[2018-05-16 13:40] VITALS: BP 121/68; PULSE 90; RESP 18
[2018-05-16] MEDS: CEFTRIAXONE 1 GM/50 ML (PMX) 50 ML IVPB SCH (17:00)
[2018-05-16] MEDS: AZITHROMYCIN 500MG/NS (PMX) 250 ML IVPB SCH (17:53)
[2018-05-16 19:51] VITALS: BP 105/70; PULSE 86; RESP 20
[2018-05-17 02:00] VITALS: BP 107/61; PULSE 80; RESP 18
[2018-05-17 07:49] VITALS: BP 102/59; PULSE 71; RESP 20
--- NOTE | 2018-05-17 09:22 | PN ---
Date/Time of Note Date/Time of Note DATE: 05/17/18 TIME: 09:20 Assessment/Plan VTE Prophylaxis Risk score (from [facility])>0 risk: 2 SCD applied (from [facility]): Yes Pharmacological prophylaxis: heparin Lines/Catheters IV [facility]from [facility] Peripheral IV Assessment/Plan Problems: (1) Community acquired pneumonia Status: Acute Comment: Improving on antibiotic therapy. Not quite over the hump but she is getting close to the time where we should start considering discharge planning Qualifiers: Laterality: unspecified laterality Qualified Codes: J18.9 - Pneumonia, unspecified organism (2) Asthma, severe persistent Status: Chronic Comment: Markedly improved as compared to the time of admission. Qualifiers: Asthma complication type: with status asthmaticus Qualified Codes: J45.52 - Severe persistent asthma with status asthmaticus (3) Seizure disorder Status: Chronic Comment: Fortunately controlled and quiescent (4) Migraine syndrome Status: Chronic Comment: Currently controlled (5) Severe sepsis Status: Resolved Comment: Resolved Result Diagram: 05/16/18 0545 05/16/18 0545 Subjective 24 Hr Interval Summary Free Text/Dictation At this time she is complaining of sinus and retropharyngeal congestion. She reports her breathing is a little bit better Constitutional: no complaints (Fevers chills or sweats) ENT: congestion Respiratory: cough (Improved), shortness of breath (Improved), wheezing (Improved) Cardiovascular: no complaints Gastrointestinal: no complaints Genitourinary: no complaints Musculoskeletal: no complaints Exam/Review of Systems Exam Vitals Vital Signs Date Temp Pulse Resp B/P (MAP) Pulse Ox O2 O2 Flow FiO2 Time Delivery Rate 05/17/18 97.9 71 20 102/59 96 07:49 (73) 05/17/18 Room Air 02:00 05/16/18 21 19:59 Intake and Output 05/16/18 05/16/18 05/17/18 1515:00 23:00 07:00 IntakeIntake Total 840 ml 1130 ml BalanceBalance 840 ml 1130 ml Constitutional: alert, oriented Eyes: nl conjunctiva, EOMI, nl lids ENMT: nl external ears & nose, nl lips & teeth, nl nasal mucosa & septum Respiratory: clear to auscultation (Markedly improved), normal air movement Cardiovascular: regular rate and rhythm, nl pulses Gastrointestinal: soft, nl liver, spleen, non-tender Medications Medication Current Medications Azithromycin 250 ml @ 250 mls/hr Q24H IVPB Last administered on 05/16/18 17:53; Admin Dose 250 MLS/HR; Start 05/16/18 at 18:00; Stop 05/19/18 at 17:59 Ceftriaxone Sodium 50 ml @ 100 mls/hr Q24H IVPB Last administered on 05/16/18at 17:00; Admin Dose 100 MLS/HR; Start 05/16/18 at 17:00; Stop 05/23/18 at 16:59 Levalbuterol (Xopenex Neb) 1.25 mg Q4H RESP THERAPY PRN HHN wheezing/sob; Start 05/15/18 at 20:00 Levalbuterol (Xopenex Neb) 1.25 mg Q6HWA RESP THERAPY HHN Last administered on 05/16/18 19:58; Admin Dose 1.25 MG; Start 05/15/18 at 20:00 Ipratropium [place] (Atrovent 0.02% (Neb)) 0.5 mg Q6HWA RESP THERAPY HHN Last administered on 05/16/18 19:58; Admin Dose 0.5 MG; Start 05/15/18 at 20:00 Ipratropium [place] (Atrovent 0.02% (Neb)) 0.5 mg Q4H RESP THERAPY PRN HHN SHORTNESS OF BREATH; Start 05/15/18 at 20:00 Budesonide (Pulmicort (Neb)) 0.5 mg BID RESP THERAPY HHN Last administered on 05/16/18 19:59; Admin Dose 0.5 MG; Start 05/15/18 at 20:00 IV Flush (NS 3 ml) 3 ml PER PROTOCOL IV ; Start 05/15/18 at 20:00 Ondansetron HCl (Zofran Inj) 4 mg Q6H PRN IV NAUSEA/VOMITING; Start 05/15/18 at 20:00 Acetaminophen (Tylenol Tab) 650 mg Q6H PRN PO .PAIN 1-3 OR TEMP; Start 05/15/18 at 20:00 Acetaminophen/ Hydrocodone Bitart ([place] (5/325)) 1 tab Q6H PRN PO .PAIN 4-6; Start 05/15/18 at 20:00 Enoxaparin Sodium (Lovenox) 40 mg DAILY SC Last administered on 05/16/18 08:32; Admin Dose 40 MG; Start 05/16/18 at 09:00 Guaifenesin/ Dextromethorphan (Robitussin Dm Liquid Cup) 5 ml Q4H PRN PO cough Last administered on 05/16/18 23:24; Admin Dose 5 ML; Start 05/15/18 at 20:00 Levetiracetam (Keppra) 1,000 mg BID PO Last administered on 05/16/18 22:25; Admin Dose 1,000 MG; Start 05/15/18 at 21:00 Topiramate (Topamax) 100 mg TID PO Last administered on 05/16/18 22:25; Admin Dose 100 MG; Start 05/15/18 at 22:00 Fluticasone/ Vilanterol (Breo Ellipta 200-25 Mcg Inh) 1 inh DAILY INH Last administered on 05/16/18 10:30; Admin Dose 1 INH; Start 05/16/18 at 10:00 Tiotropium [place] (Spiriva) 1 inh DAILY INH Last administered on 05/16/18 10:30; Admin Dose 1 INH; Start 05/16/18 at 10:00 RENEE JIMENEZ MD May 17, 2018 09:22
[2018-05-17] MEDS: IPRATROPIUM (NEB) 0.5 MG/2.5 ML AMP HHN SCH ×3 (09:55→19:26)
[2018-05-17] MEDS: LEVALBUTEROL (NEB) 1.25 MG/0.5 ML AMP HHN SCH ×3 (09:56→19:26)
[2018-05-17] MEDS: BUDESONIDE (NEB) 0.5MG/2ML AMP HHN SCH ×2 (09:57→19:26)
[2018-05-17] MEDS: GUAIFENESIN/DM 5ML CUP PO PRN ×2 (10:14→21:31)
[2018-05-17] MEDS: TOPIRAMATE 100 MG TAB PO SCH ×3 (10:14→21:27)
[2018-05-17] MEDS: FLUTICASONE/VILANTEROL 200-25 INH DEVICE INH SCH (10:14)
[2018-05-17] MEDS: LEVETIRACETAM 500 MG TAB PO SCH ×2 (10:14→21:27)
[2018-05-17] MEDS: ENOXAPARIN 40 MG/0.4 ML SYG SC SCH (10:14)
[2018-05-17] MEDS: TIOTROPIUM 18 MCG CAPSULE INHA DEV INH SCH (10:15)
[2018-05-17 14:58] VITALS: BP 105/58; PULSE 85; RESP 18
[2018-05-17] MEDS: CEFTRIAXONE 1 GM/50 ML (PMX) 50 ML IVPB SCH (17:31)
[2018-05-17 19:42] VITALS: BP 96/55; PULSE 71; RESP 18
[2018-05-17] MEDS: AZITHROMYCIN 500MG/NS (PMX) 250 ML IVPB SCH (19:44)
[2018-05-18 02:00] VITALS: BP 112/75; RESP 18
[2018-05-18 08:00] VITALS: BP 118/72; PULSE 81; RESP 18
[2018-05-18] MEDS: LEVALBUTEROL (NEB) 1.25 MG/0.5 ML AMP HHN SCH ×3 (08:00→19:43)
[2018-05-18] MEDS: IPRATROPIUM (NEB) 0.5 MG/2.5 ML AMP HHN SCH ×3 (08:00→19:44)
[2018-05-18] MEDS: BUDESONIDE (NEB) 0.5MG/2ML AMP HHN SCH ×2 (09:00→19:43)
[2018-05-18] MEDS: TOPIRAMATE 100 MG TAB PO SCH ×3 (09:47→21:07)
[2018-05-18] MEDS: TIOTROPIUM 18 MCG CAPSULE INHA DEV INH SCH (09:47)
[2018-05-18] MEDS: FLUTICASONE/VILANTEROL 200-25 INH DEVICE INH SCH (09:48)
[2018-05-18] MEDS: LEVETIRACETAM 500 MG TAB PO SCH ×2 (09:48→21:07)
[2018-05-18] MEDS: ENOXAPARIN 40 MG/0.4 ML SYG SC SCH (09:49)
[2018-05-18] MEDS: GUAIFENESIN/DM 5ML CUP PO PRN (13:30)
[2018-05-18 14:11] VITALS: BP 122/58; PULSE 79; RESP 20
[2018-05-18] MEDS ORDERED: POTASSIUM CHLORIDE (SR) 20 MEQ TAB PO STA (14:37)
--- NOTE | 2018-05-18 14:44 | PN ---
Date/Time of Note Date/Time of Note DATE: 05/18/18 TIME: 14:41 Assessment/Plan VTE Prophylaxis Risk score (from [facility])>0 risk: 2 SCD applied (from [facility]): Yes Pharmacological prophylaxis: LMWH Lines/Catheters IV C[facility]ter Type (from [facility]): Peripheral IV Assessment/Plan Assessment/Plan 1. Community acquired pneumonia, on rocephin and zithromax, improving 2. Asthma, stable 3. Seizure disorder, stable on keppra 4. Migraine, stable 5. DVT prophylaxis: lovenox Result Diagram: 05/18/1843805/18/18438 Results 24hrs Laboratory Tests Test 05/18/18 04:39 White Blood Count 7.5 # Red Blood Count 3.41 L Hemoglobin 10.6 L Hematocrit 31.9 L Mean Corpuscular Volume 93.5 Mean Corpuscular Hemoglobin 31.1 Mean Corpuscular Hemoglobin Concent 33.2 Red Cell Distribution Width 12.0 Platelet Count 212 Mean Platelet Volume 9.9 Immature Granulocytes % 0.400 Neutrophils % 62.7 Lymphocytes % 29.1 Monocytes % 6.4 Eosinophils % 1.1 Basophils % 0.3 Nucleated Red Blood Cells % 0.0 Immature Granulocytes # 0.030 Neutrophils # 4.7 Lymphocytes # 2.2 Monocytes # 0.5 Eosinophils # 0.1 Basophils # 0.0 Nucleated Red Blood Cells # 0.0 Erythrocyte Sedimentation Rate 63 H Sodium Level 143 Potassium Level 3.4 L Chloride Level 111 H Carbon Dioxide Level 20 L Anion Gap 12 Blood Urea Nitrogen 12 Creatinine 0.80 Est Glomerular Filtrat Rate mL/min > 60 Glucose Level 98 # Calcium Level 8.6 Total Bilirubin 0.1 L Direct Bilirubin 0.00 Indirect Bilirubin 0.1 Aspartate Amino Transf (AST/SGOT) 48 H Alanine Aminotransferase (ALT/SGPT) 87 H Alkaline Phosphatase 75 Total Protein 6.3 Albumin 3.1 L Globulin 3.20 Albumin/Globulin Ratio 0.96 Subjective 24 Hr Interval Summary Free Text/Dictation still cough, electrical engineer mep sputum, less shortness of breath Exam/Review of Systems Exam Vitals Vital Signs Date Temp Pulse Resp B/P (MAP) Pulse Ox O2 O2 Flow FiO2 Time Delivery Rate 05/18/18 98.5 79 20 122/58 96 14:11 (79) 05/18/18 Room Air 08:00 05/17/18 21 19:26 Intake and Output 05/17/18 05/17/18 05/18/18 1515:00 23:00 07:00 IntakeIntake Total 960 ml 1010 ml 120 ml BalanceBalance 960 ml 1010 ml 120 ml Constitutional: alert, oriented, well developed Psych: no complaints, nl mood/affect Head: normocephalic, atraumatic Eyes: nl conjunctiva, EOMI, nl lids, nl sclera, PERRL ENMT: nl external ears & nose, nl lips & teeth, nl nasal mucosa & septum Neck: supple, non-tender Respiratory: clear to auscultation, normal air movement, crackles/rales; No diminished breath sounds, No intercostal retraction, No labored breathing, No respirations, No tactile fremitus, No wheezing, No other Cardiovascular: regular rate and rhythm, nl pulses; No bruits, No diastolic murmur, No edema, No gallop, No irregular rhythm, No jugular venous distention (JVD), No murmurs/extra sounds, No rub, No systolic murmur, No S3, No S4, No other Gastrointestinal: soft, nl liver, spleen, non-tender Musculoskeletal: nl extremities to inspection Extremities: normal pulses; No calf tenderness, No cyanosis, No clubbing, No edema, No pitting pedal edema, No palpable cord, No tenderness, No other Neurological: SENIOR ADMINISTRATIVE ASSOCIATE II-XII intact, nl mental status, nl speech, nl strength Skin: nl turgor Results Results 24hrs Laboratory Tests Test 05/18/18 04:39 White Blood Count 7.5 # Red Blood Count 3.41 L Hemoglobin 10.6 L Hematocrit 31.9 L Mean Corpuscular Volume 93.5 Mean Corpuscular Hemoglobin 31.1 Mean Corpuscular Hemoglobin Concent 33.2 Red Cell Distribution Width 12.0 Platelet Count 212 Mean Platelet Volume 9.9 Immature Granulocytes % 0.400 Neutrophils % 62.7 Lymphocytes % 29.1 Monocytes % 6.4 Eosinophils % 1.1 Basophils % 0.3 Nucleated Red Blood Cells % 0.0 Immature Granulocytes # 0.030 Neutrophils # 4.7 Lymphocytes # 2.2 Monocytes # 0.5 Eosinophils # 0.1 Basophils # 0.0 Nucleated Red Blood Cells # 0.0 Erythrocyte Sedimentation Rate 63 H Sodium Level 143 Potassium Level 3.4 L Chloride Level 111 H Carbon Dioxide Level 20 L Anion Gap 12 Blood Urea Nitrogen 12 Creatinine 0.80 Est Glomerular Filtrat Rate mL/min > 60 Glucose Level 98 # Calcium Level 8.6 Total Bilirubin 0.1 L Direct Bilirubin 0.00 Indirect Bilirubin 0.1 Aspartate Amino Transf (AST/SGOT) 48 H Alanine Aminotransferase (ALT/SGPT) 87 H Alkaline Phosphatase 75 Total Protein 6.3 Albumin 3.1 L Globulin 3.20 Albumin/Globulin Ratio 0.96 Medications Medication Current Medications Azithromycin 250 ml @ 250 mls/hr Q24H IVPB Last administered on 05/17/18at 19:44; Admin Dose 250 MLS/HR; Start 05/16/18 at 18:00; Stop 05/19/18 at 17:59 Ceftriaxone Sodium 50 ml @ 100 mls/hr Q24H IVPB Last administered on 05/17/18at 17:31; Admin Dose 100 MLS/HR; Start 05/16/18 at 17:00; Stop 05/23/18 at 16:59 Levalbuterol (Xopenex Neb) 1.25 mg Q4H RESP THERAPY PRN HHN wheezing/sob; Start 05/15/18 at 20:00 Levalbuterol (Xopenex Neb) 1.25 mg Q6HWA RESP THERAPY HHN Last administered on 05/17/18 19:26; Admin Dose 1.25 MG; Start 05/15/18 at 20:00 Ipratropium [place] (Atrovent 0.02% (Neb)) 0.5 mg Q6HWA RESP THERAPY HHN Last administered on 05/17/18 19:26; Admin Dose 0.5 MG; Start 05/15/18 at 20:00 Ipratropium [place] (Atrovent 0.02% (Neb)) 0.5 mg Q4H RESP THERAPY PRN HHN SHORTNESS OF BREATH; Start 05/15/18 at 20:00 Budesonide (Pulmicort (Neb)) 0.5 mg BID RESP THERAPY HHN Last administered on 05/17/18 19:26; Admin Dose 0.5 MG; Start 05/15/18 at 20:00 IV Flush (NS 3 ml) 3 ml PER PROTOCOL IV ; Start 05/15/18 at 20:00 Ondansetron HCl (Zofran Inj) 4 mg Q6H PRN IV NAUSEA/VOMITING; Start 05/15/18 at 20:00 Acetaminophen (Tylenol Tab) 650 mg Q6H PRN PO .PAIN 1-3 OR TEMP; Start 05/15/18 at 20:00 Acetaminophen/ Hydrocodone Bitart ([place] (5/325)) 1 tab Q6H PRN PO .PAIN 4-6; Start 05/15/18 at 20:00 Enoxaparin Sodium (Lovenox) 40 mg DAILY SC Last administered on 05/18/18 09:49; Admin Dose 40 MG; Start 05/16/18 at 09:00 Guaifenesin/ Dextromethorphan (Robitussin Dm Liquid Cup) 5 ml Q4H PRN PO cough Last administered on 05/18/18 13:30; Admin Dose 5 ML; Start 05/15/18 at 20:00 Levetiracetam (Keppra) 1,000 mg BID PO Last administered on 05/18/18 09:48; Admin Dose 1,000 MG; Start 05/15/18 at 21:00 Topiramate (Topamax) 100 mg TID PO Last administered on 05/18/18 13:27; Admin Dose 100 MG; Start 05/15/18 at 22:00 Fluticasone/ Vilanterol (Breo Ellipta 200-25 Mcg Inh) 1 inh DAILY INH Last administered on 05/18/18 09:48; Admin Dose 1 INH; Start 05/16/18 at 10:00 Tiotropium [place] (Spiriva) 1 inh DAILY INH Last administered on 05/18/18 09:47; Admin Dose 1 INH; Start 05/16/18 at 10:00 MARY FLORENCE MD May 18, 2018 14:44
[2018-05-18] MEDS: CEFTRIAXONE 1 GM/50 ML (PMX) 50 ML IVPB SCH (18:05)
[2018-05-18] MEDS: AZITHROMYCIN 500MG/NS (PMX) 250 ML IVPB SCH (18:51)
[2018-05-18 20:00] VITALS: BP 98/69; PULSE 82; RESP 18
[2018-05-19 01:21] VITALS: BP 109/59; PULSE 78; RESP 18
[2018-05-19 07:44] VITALS: BP 115/71; PULSE 82; RESP 17
[2018-05-19] MEDS: BUDESONIDE (NEB) 0.5MG/2ML AMP HHN SCH (08:16)
[2018-05-19] MEDS: IPRATROPIUM (NEB) 0.5 MG/2.5 ML AMP HHN SCH ×2 (08:16→13:20)
[2018-05-19] MEDS: LEVALBUTEROL (NEB) 1.25 MG/0.5 ML AMP HHN SCH ×2 (08:16→13:21)
[2018-05-19] MEDS: TOPIRAMATE 100 MG TAB PO SCH (08:57)
[2018-05-19] MEDS: TIOTROPIUM 18 MCG CAPSULE INHA DEV INH SCH (08:57)
[2018-05-19] MEDS: LEVETIRACETAM 500 MG TAB PO SCH (08:57)
[2018-05-19] MEDS: FLUTICASONE/VILANTEROL 200-25 INH DEVICE INH SCH (08:58)
[2018-05-19] MEDS: GUAIFENESIN/DM 5ML CUP PO PRN (09:03)
[2018-05-19] MEDS: ENOXAPARIN 40 MG/0.4 ML SYG SC SCH (09:15)
[2018-05-19] MEDS ORDERED: LEVO500T48 PO (12:41)
--- NOTE | 2018-05-19 12:46 | DS ---
Date/Time of Note Date/Time of Note DATE: 05/19/18 TIME: 12:42 Discharge Summary Admission/Discharge Info Admit Date/Time May 15, 2018 at 17:36 Discharge Date/Time Discharge Diagnosis 1. Community acquired pneumonia, improving, antibiotics 2. Asthma, stable 3. Seizure disorder, stable on keppra 4. Migraine, stable Patient Condition: Stable Hospital Course Patient is a male with past medical history significant for asthma, epilepsy, intractable migraines, and bipolar disease who presents to [facility] for worsening shortness of breath and cough. Over the past 3 weeks patient has been dealing with multiple different types of illnesses and this worsening cough. Patient went into the ER multiple times as well as her primary care provider was given medications however all the symptoms continue to get worse. Patient was admitted today for pneumonia. Patient currently complains of productive cough and generalized weakness and body aches. Patient denies abdominal pain, leg pain, chest pain. WBC 19,200. CXR indicates patchy bibasilar infiltrates, right greater than left. Patient is treated with rocephin and zithromax for pneumonia, symptoms improving with less shortness of breath, afebrile, no leukocytosis. She will be discharged on levaquin for 7 more days. Home Meds Active Scripts Levofloxacin* (Levaquin*) 500 Mg Tablet, 500 MG PO DAILY for 7 Days, TAB Prov:MARY FLORENCE MD 05/19/18 Albuterol Sulfate* (Ventolin HFA*) 18 Gm Hfa.aer.ad, 2 PUFF INHALATION Q4H, #1 INHALER Prov:RAMONA DAWN MD 04/30/18 Dextromethorphan Hb-Promethazine Hcl* (Promethazine DM* Syrup) 473 Ml Syrup, 5 ML PO Q6 PRN for COUGH for 5 Days, ML Prov:RAMONA DAWN MD 04/30/18 Reported Medications Levetiracetam* (Levetiracetam*) 500 Mg Tablet, 1000 MG PO BID, TAB 05/15/18 Topiramate* (Topiramate*) 100 Mg Tablet, 100 MG PO TID, TAB 05/15/18 Discontinued Reported Medications Levetiracetam* (Levetiracetam*) 250 Mg Tablet, 250 MG PO BID 08/05/13 Albuterol Sulfate* (Albuterol Sulfate* Neb) 20 Ml Nebu, 20 ML IH 08/05/13 Beclomethasone Dip (Qvar 80) 1 Puff Inha, 1 PUFF INH BID, INH RINSE MOUTH AFTER EACH USE 08/05/13 Ibuprofen* (Ibuprofen*) 800 Mg Tablet, 800 MG PO PRN for PAIN 08/05/13 Diphenhydramine HCl (Benadryl) 25 Mg Capsule, 50 MG PO 08/05/13 Ziprasidone* (Geodon*) 60 Mg Capsule, 60 MG PO BID 08/05/13 Discontinued Scripts Prednisone* (Prednisone*) 20 Mg Tab, 40 MG PO DAILY for 4 Days, TAB Start April 30, 2018 Prov:RAMONA DAWN MD 04/30/18 Azithromycin* (Zithromax*) 250 Mg Tablet, 250 MG PO .ZPACK DIRECTED, #6 TAB TAKE 500 MG (2 TABS) THE FIRST DAY THEN 250 MG (1 TAB) DAYS 2-5 Prov:RAMONA DAWN MD 04/30/18 Albuterol Sulfate* (Ventolin HFA*) 18 Gm Hfa.aer.ad, 2 PUFF INHALATION Q4H, #1 INHALER Prov:ADALBERTO ARTEAGA PA-C 01/30/18 Azithromycin* (Zithromax*) 250 Mg Tablet, 250 MG PO .ZPACK DIRECTED, #6 TAB TAKE 500 MG (2 TABS) THE FIRST DAY THEN 250 MG (1 TAB) DAYS 2-5 Prov:ADALBERTO ARTEAGA PA-C 01/30/18 Benzonatate* (Benzonatate*) 200 Mg Capsule, 200 MG PO TID PRN for COUGH, #15 CAP Prov:ADALBERTO ARTEAGA PA-C 01/30/18 Methylprednisolone* (Medrol* DOSE PACK) 4 Mg/Dose-Pack Tab.ds.pk, 4 MG PO . DIRECTED, #1 PACKET Prov:ADALBERTO ARTEAGA PA-C 01/30/18 Albuterol Sulfate* (Proair HFA*) 8.5 Gm Hfa.aer.ad, 2 PUFF INH Q4, #1 INHALER Prov:ROMAIN FITZPATRICK PA-C 12/19/16 Benzonatate* (Tessalon Perle*) 100 Mg Capsule, 100 MG PO Q8H PRN for COUGH, #20 CAP Prov:NANETTEROMAIN Pal PA-C 12/19/16 Diphenhydramine Hcl* (Benadryl*) 25 Mg Cap, 25 MG PO Q6 PRN for ITCHING/RASH, #30 TAB Prov:ROMAIN FITZPATRICK PA-C 12/19/16 Prednisone* (Prednisone*) 20 Mg Tab, 40 MG PO DAILY for 4 Days, TAB Prov:ROMAIN FITZPATRICK PA-C 12/19/16 Cephalexin* (Keflex*) 500 Mg Capsule, 500 MG PO QID for 7 Days, CAP Prov:ROMAIN FITZPATRICK PA-C 12/19/16 Xpjplkvsoro-R-Neysszevcl Hb* (Guaifenesin* DM Syrup) 120 Ml Syrup, 10 ML PO Q4H PRN for COUGH, #120 ML Prov:JESUS BURT NP 12/11/15 Prednisone* (Prednisone*) 50 Mg Tablet, 50 MG PO DAILY, #5 TAB Prov:JESUS BURT NP 12/11/15 Albuterol Sulfate* (Proair HFA*) 8.5 Gm Hfa.aer.ad, 2 PUFF INH Q4H PRN for WHEEZING AND SOB, #1 INHALER Prov:JESUS BURT NP 12/11/15 Follow-up Plan PCP in one week Primary Care Provider Not On Staff Doctor Pending Labs Laboratory Tests Test 05/19/18 05:50 White Blood Count 7.3 10^3/ul (4.8-10.8) Red Blood Count 3.71 10^6/ul (4.20-5.40) Hemoglobin 11.7 g/dl (12.0-16.0) Hematocrit 34.2 % (37.0-47.0) Mean Corpuscular Volume 92.2 fl (82.0-101.0) Mean Corpuscular Hemoglobin 31.5 pg (29.0-33.0) Mean Corpuscular Hemoglobin Concent 34.2 g/dl (32.0-37.0) Red Cell Distribution Width 11.9 % (11.5-14.5) Platelet Count 251 10^3/UL (140-415) Mean Platelet Volume 9.7 fl (7.4-10.4) Immature Granulocytes % 0.500 % (0.001-0.429) Neutrophils % 61.3 % (39.0-77.0) Lymphocytes % 28.8 % (15.0-51.0) Monocytes % 7.3 % (0.0-11.0) Eosinophils % 1.8 % (0.0-7.0) Basophils % 0.3 % (0.0-2.0) Nucleated Red Blood Cells % 0.0 /100WBC (0.0-0.0) Immature Granulocytes # 0.040 10^3/ul (0.0-0.031) Neutrophils # 4.5 10^3/ul (1.6-7.5) Lymphocytes # 2.1 10^3/ul (0.8-2.9) Monocytes # 0.5 10^3/ul (0.3-0.9) Eosinophils # 0.1 10^3/ul (0.0-0.5) Basophils # 0.0 10^3/ul (0.0-0.1) Nucleated Red Blood Cells # 0.0 10^3/ul (0.0-0.0) Sodium Level 144 mmol/L (135-144) Potassium Level 3.6 mmol/L (3.5-5.1) Chloride Level 109 mmol/L (97-110) Carbon Dioxide Level 21 mmol/L (21-31) Anion Gap 14 (5-13) Blood Urea Nitrogen 9 mg/dl (7-20) Creatinine 0.83 mg/dl (0.44-1.00) Est Glomerular Filtrat Rate mL/min > 60 mL/min (>60) Glucose Level 101 mg/dl (70-220) Calcium Level 8.9 mg/dl (8.4-10.2) MARY FLORENCE MD May 19, 2018 12:46
[2018-05-20] MEDS ORDERED: LEVOFLOXACIN 500 MG TAB PO SCH (06:00)
== END 2018-05-19 14:40 | disposition home or self-care (01) | DRG 871 ==
LOC: E/R 14:41 → 2NE 17:36
PROVIDERS: ADMIT Internal Medicine; ATTEND Internal Medicine
DX: A41.9 Sepsis, unspecified organism (principal); J18.9 Pneumonia, unspecified organism; G40.909 Epilepsy, unspecified, not intractable, without status epilepticus; F31.9 Bipolar disorder, unspecified; R65.20 Severe sepsis without septic shock; G43.909 Migraine, unspecified, not intractable, without status migrainosus; J45.50 Severe persistent asthma, uncomplicated
CPT/HCPCS: 36415; 71045; 80048; 80053; 83605; 83735; 84484; 85025; 85651; 87040; 87400; 93005; 94640; 94644; 94664; 96365; 96375; J0456; J0696; J1100; J1650; J7030

== ENCOUNTER 2018-10-21 09:58 | Emergency (ER) | payer OTHER ==
[~2018-10-21] VITALS: Ht 157.5 cm; Wt 79.1 kg
[~2018-10-21 09:58] MED LIST changes: -ALB.5NB20 IH; -AZIT250T PO; -BCL80INH INH; -BEN25 PO; -BENZ200C68 PO; -CEPH-443 PO; -DIPH25CA77 PO; -GUAI120S26 PO; -IBUP-1544 PO; -LEVE250T5 PO; +LEVE500T8 PO; +LEVO500T48 PO; -MED4DP PO; -PRED50TA PO; +TOPI100T11 PO; -ZIPR60CA2 PO
[2018-10-21 10:02] VITALS: BP 181/104; PULSE 109; RESP 24; Ht 157.5 cm; Wt 79.1 kg
[2018-10-21] MEDS ORDERED: ALBUTEROL 0.083% (NEB) 2.5 MG/3 ML AMP HHN STA (10:24)
[2018-10-21] MEDS ORDERED: DEXAMETHASONE 10 MG/ML 1 ML INJ IM ONE (10:30)
--- NOTE | 2018-10-21 13:23 | ERD ---
ER Documentation Chief Complaint Chief Complaint COUGH, CHEST CONGESTION X 2 WEEKS HPI 58-year-old female presenting with cough and congestion x2 weeks. Patient had a runny nose and has been taking Mucinex. Patient also feels like she has some mild dysuria. She is been taking Mucinex with no alleviation of symptoms. Denies any fever. Medical history is asthma seizures bipolar. Social history denies. Surgical history arm surgery tonsillectomy D&C and hysterectomy. Medical allergies to tetracycline, codeine and aspirin. ROS All systems reviewed and are negative except as per history of present illness. Medications Home Meds Active Scripts Benzonatate* (Tessalon Perle*) 100 Mg Capsule, 100 MG PO Q8H PRN for COUGH, #30 CAP Prov:ASHELY MCCALL PA-C 10/21/18 Dextromethorphan Hb-Promethazine Hcl* (Promethazine DM* Syrup) 473 Ml Syrup, 5 ML PO Q6 PRN for COUGH, #100 ML Prov:ASHELY MCCALL PA-C 10/21/18 Prednisone* (Prednisone*) 20 Mg Tab, 40 MG PO DAILY for 4 Days, TAB Prov:ASHELY MCCALL PA-C 10/21/18 Albuterol Sulfate* (Proair HFA*) 8.5 Gm Hfa.aer.ad, 2 PUFF INH Q4, #1 INHALER Prov:ASHELY MCCALL PA-C 10/21/18 Levofloxacin* (Levaquin*) 500 Mg Tablet, 500 MG PO DAILY for 7 Days, TAB Prov:MARY FLORENCE MD 05/19/18 Albuterol Sulfate* (Ventolin HFA*) 18 Gm Hfa.aer.ad, 2 PUFF INHALATION Q4H, #1 INHALER Prov:RAMONA DAWN MD 04/30/18 Dextromethorphan Hb-Promethazine Hcl* (Promethazine DM* Syrup) 473 Ml Syrup, 5 ML PO Q6 PRN for COUGH for 5 Days, ML Prov:RAMONA DAWN MD 04/30/18 Reported Medications Levetiracetam* (Levetiracetam*) 500 Mg Tablet, 1000 MG PO BID, TAB 05/15/18 Topiramate* (Topiramate*) 100 Mg Tablet, 100 MG PO TID, TAB 05/15/18 Allergies Allergies: Coded Allergies: Tetracyclines (Unverified Allergy, Unknown, DYSPNEA, VOMITING, 10/21/18) aspirin (Unverified Allergy, Unknown, NAUSEA, 10/21/18) codeine (Unverified Allergy, Unknown, RASH, HIVES, 10/21/18) PMhx/Soc History of Surgery: Yes (Right arm x2 surgeries, tonsillectomy, Hysterectomy ) Anesthesia Reaction: No Hx Neurological Disorder: Yes (Seizure) Hx Respiratory Disorders: Yes (Asthma) Hx Cardiac Disorders: Yes (HTN ) Hx Psychiatric Problems: Yes (Bipolar Disorder) Hx Miscellaneous Medical Probl: No Hx Alcohol Use: Yes Hx Substance Use: Yes Hx Tobacco Use: Yes Smoking Status: Former smoker FmHx Family History: No diabetes, No coronary disease, No other Physical Exam Vitals Vital Signs Date Temp Pulse Resp B/P (MAP) Pulse Ox O2 O2 Flow FiO2 Time Delivery Rate 10/21/18 109 24 97 21 10:33 10/21/18 97.4 109 24 181/104 97 10:02 (129) Physical Exam GENERAL: The patient is well-appearing, well-nourished, in no acute distress HEENT: Atraumatic. Conjunctivae are pink. Pupils equal, round, and reactive to light. There is no scleral icterus. Tympanic membranes clear bilaterally. Oropharynx clear. NECK: C-spine is soft and supple. There is no meningismus. There is no cervical lymphadenopathy. CHEST: Clear to auscultation bilaterally. There are no rales, wheezes or rhonchi. HEART: Regular rate and rhythm. No murmurs, clicks, rubs or gallops. Results 24 hrs Laboratory Tests Test 10/21/18 11:30 Urine Color YELLOW Urine Clarity CLEAR Urine pH 6.0 Urine Specific Arbon 1.020 Urine Ketones NEGATIVE mg/dL Urine Nitrite NEGATIVE mg/dL Urine Bilirubin NEGATIVE mg/dL Urine Urobilinogen NEGATIVE mg/dL Urine Leukocyte Esterase NEGATIVE Aurelia/ul Urine Hemoglobin NEGATIVE mg/dL Urine Glucose NEGATIVE mg/dL Urine Total Protein NEGATIVE mg/dl Current Medications Medications Dose Sig/Enoc Start Time Status Last (Trade) Ordered Route PRN Stop Time Admin Dose Reason Admin Albuterol 5 mg ONCE STAT 10/21/18 DC 10/21/18 (Proventil HHN 10:24 10:32 0.083% (Neb)) 10/21/18 10:26 10 mg ONCE ONCE 10/21/18 DC 10/21/18 Dexamethasone IM 10:30 10:31 (Decadron) 10/21/18 10:31 Procedures/MDM DIAGNOSTIC IMAGING REPORT Patient: MARY MILTON : 1960 Age: 58 Sex: F MR #: [id number] DOS: 10/21/18 1024 Ordering MD: MARIA GUADALUPE MCCALL PA-C Location: [facility] Room/Bed: PROCEDURE: XR Chest. CLINICAL INDICATION: Cough TECHNIQUE: AP portable semi upright chest was obtained COMPARISON: Chest 12/11/2015 FINDINGS: Heart normal limits in size. No evidence of pulmonary vascular congestion acute lung consolidation pleural effusions and pneumothorax. Minimal dextrorotoscoliosis thoracic spine. IMPRESSION: No evidence of acute cardiopulmonary disease. ER Course: Albuterol and Atrovent breathing treatment given ED. IM Decadron given in ED. MDM: 58-year-old female presenting with productive cough. A low suspicion for pneumonia. I have low suspicion for respiratory distress or hypoxia. Patient's oxygen saturation is stable and patient exam is non-concerning. Patient is discharged with supportive medications and I do not feel there is indication for blood work. I have low suspicion for CHF. I have low suspicion for PE. I have low suspicion for cardiac abnormality. Patient is discharged with strict ER precautions and told to follow-up with primary care within 1 to 2 days for close evaluation. All questions answered at discharge Departure Diagnosis: Primary Impression: Cough Condition: Stable Patient Instructions: Cough, Chronic, Uncertain Cause, (Adult) Referrals: SHERRY VALADEZ (PCP) Additional Instructions: FOLLOW UP WITH YOUR PRIMARY CARE PHYSICIAN TOMORROW.Return to this facility if you are not improving as expected. ASHELY MCCALL PA-C Oct 21, 2018 13:23
== END 2018-10-21 12:25 | disposition home or self-care (01) ==
LOC: FTE 09:58
DX: J45.909 Unspecified asthma, uncomplicated (principal); I10 Essential (primary) hypertension; Z87.891 Personal history of nicotine dependence
CPT/HCPCS: 71045; 81003; 94664; 96372; J1100; Z7502; Z7610